=== PATIENT | male | born 1975 | race Two or more races ===

== ENCOUNTER 2023-12-23 23:22 | Emergency (ER) | payer MEDICAID ==
[~2023-12-23] VITALS: Ht 170.2 cm; Wt 79.4 kg
[2023-12-24] MEDS ORDERED: HYDROCODONE/APAP 5/325MG TABLET ONE (01:07)
[2023-12-24] MEDS: HYDROCODONE/APAP 5/325MG TABLET PO ONE (01:08)
[2023-12-24] MEDS ORDERED: ONDANSETRON HCL/PF 4 MG/2 ML VIAL ONE (02:30)
[2023-12-24] MEDS ORDERED: MORPHINE SULFATE INJ 4 MG/ML DISP.SYRIN ONE (02:31)
[2023-12-24] MEDS: MORPHINE SULFATE INJ 2 MG/ML DISP.SYRIN IV ONE (02:31)
[2023-12-24] MEDS: ONDANSETRON HCL/PF 4 MG/2 ML VIAL IV ONE (02:31)
[2023-12-24] MEDS ORDERED: HYDR-3972 PO (03:08)
[2023-12-24 03:09] LABS: BASOPHILS % (AUTO) 0.3 % (0.0-2.0); EOSINOPHILS % (AUTO) 0.2 % (0.0-6.0); HEMATOCRIT 40 % (39-51); HEMOGLOBIN 13.4 g/dL (13.5-17.5); LYMPHOCYTES # (AUTO) 1.3 K/uL (0.8-4.8); MEAN CORPUSCULAR HEMOGLOBIN 32 PG (26.0-33.0); MEAN CORPUSCULAR HGB CONC 34 g/dl (31.0-36.0); MEAN CORPUSCULAR VOLUME 94 fL (80-96); MONOCYTES # (AUTO) 0.8 K/uL (0.1-1.30); MONOCYTES % (AUTO) 9.8 % (2.0-12.0); NEUTROPHILS # (AUTO) 6.2 K/uL (1.8-8.9); NEUTROPHILS % (AUTO) 73.7 % (43.0-81.0); PLATELET COUNT (AUTO) 337 K/uL (150-450); RED BLOOD CELL COUNT(AUTO) 4.18 MIL/uL (4.5-6.0); RED CELL DISTRIBUTION WIDTH 13.4 % (11.5-15.0); WHITE BLOOD COUNT (AUTO) 8.4 K/uL (4.3-11.0)
[2023-12-24 03:21] LABS: INR 1.1 (0.91-1.10); PROTHROMBIN TIME 11.6 SECS (9.2-11.1)
[2023-12-24 03:30] LABS: CALCIUM, SERUM 8.6 mg/dL (8.5-10.1); CREATININE 0.9 mg/dL (0.6-1.3); POTASSIUM 3.5 mmol/L (3.5-5.1)
[2023-12-24 03:51] VITALS: BP 136/81; TEMP 97.8; O2SAT 99
== END 2023-12-24 03:52 | disposition home or self-care (01) ==
LOC: ER 23:26
DX: S82.851A Displaced trimalleolar fracture of right lower leg, initial encounter for closed fracture (principal); R94.31 Abnormal electrocardiogram [ECG] [EKG]; W17.89XA Other fall from one level to another, initial encounter; Y93.89 Activity, other specified; Y92.89 Other specified places as the place of occurrence of the external cause; Y99.8 Other external cause status
CPT/HCPCS: 29515; 36415; 71045; 73610; 73700; 80048; 85025; 85730; 93005; 96374; 96375; 99285; J2270; J2405